=== PATIENT | female | born 1970 | race Caucasian/White ===

== ENCOUNTER 2022-07-31 11:46 | Outpatient (CLI) | payer OTHER ==
[2022-07-31] MEDS ORDERED: Magnevist 469MG/ML 20 ML VIAL ONE (12:50)
== END 2022-07-31 11:47 | disposition home or self-care (01) ==
LOC: CSHMRI 11:46
PROVIDERS: ATTEND Psychiatry & Neurology Neurology
DX: G35 Multiple sclerosis (principal); M47.814 Spondylosis without myelopathy or radiculopathy, thoracic region; M51.24 Other intervertebral disc displacement, thoracic region; G95.89 Other specified diseases of spinal cord; M47.812 Spondylosis without myelopathy or radiculopathy, cervical region; M48.02 Spinal stenosis, cervical region
CPT/HCPCS: 70553; 72156; 72157; A9579

== ENCOUNTER 2025-03-31 19:10 | Emergency (ER) | payer MEDICAID ==
[~2025-03-31 19:10] MED LIST: Iopamidol 300 61% 100 ML VIAL FS ONE
[2025-03-31 20:17] LABS: #Basophils 0.04 10x3/uL (0.0-0.2); #Eosinophils 0.20 10x3/uL (0.0-0.5); #Monocytes 0.54 10x3/uL (0.0-1.1); #Neutrophils 5.08 10x3/uL (1.5-8.4); %Basophils 0.4 % (0.0-2.0); %Eosinophils 2.1 % (0.0-6.0); %Lymphocytes 37.2 % (18.0-47.0); %Monocytes 5.8 % (0.0-10.0); %Neutrophils 54.3 % (40.0-75.0); Hematocrit 41.9 % (34.9-44.5); Hemoglobin 14.0 g/dL (12.0-15.5); Mean Corpuscular Hemoglobin 31.0 pg (27.0-33.0); Mean Corpuscular Volume 92.7 fL (81.6-98.3); Platelet Count 197 10x3/uL (150-450); Red Blood Cell (RBC) Count 4.52 10x6/uL (3.90-5.03); White Blood Cell (WBC) Count 9.37 10x3/uL (3.5-10.5)
[2025-03-31 20:38] LABS: ALT (SGPT) 19 U/L (Less than 34); AST (SGOT) 21 U/L (11-34); Albumin 4.0 g/dL (3.1-4.5); Alkaline Phosphatase 105 U/L (40-110); Anion Gap 11 mmol/L (10-20); BUN (Urea Nitrogen) 17 mg/dL (9.8-20.1); Bilirubin, Total 0.7 mg/dL (0.3-1.2); Calc. Creatinine Clearance 0 mL/min (70-130); Calcium 9.2 mg/dL (7.8-10.44); Carbon Dioxide 27 mmol/L (22-29); Chloride 106 mmol/L (98-107); Globulin 3.1 g/dL (2.4-3.5); Glucose 91 mg/dL (70-105); Lipase 41 U/L (8-78); Magnesium 1.9 mg/dL (1.6-2.6); Potassium 3.1 mmol/L (3.5-5.1); Sodium 141 mmol/L (136-145)
[2025-03-31 21:11] LABS: Glucose, Urine (Dipstick) Normal (Negative); Leukocyte 100 (Negative); Protein, Urine (Dipstick) 100 mg/dl (Neg-Trace); Specific Gravity, Urine 1.025 (1.005-1.030)
[2025-03-31 21:24] LABS: RBC/HPF 0-3 HPF (0-3); WBC/HPF 0-3 HPF (0-3)
[2025-03-31 21:25] LABS: Bacteria/HPF 2+ HPF (None Seen); Mucous/LPF 2+ LPF (<2+)
== END 2025-03-31 22:27 | disposition home or self-care (01) ==
LOC: CSHERS 19:10
DX: K80.20 Calculus of gallbladder without cholecystitis without obstruction (principal); M25.562 Pain in left knee; E11.9 Type 2 diabetes mellitus without complications; I10 Essential (primary) hypertension; Z79.4 Long term (current) use of insulin; Z79.84 Long term (current) use of oral hypoglycemic drugs; Z79.899 Other long term (current) drug therapy
CPT/HCPCS: 74177; 76705; 80053; 81001; 83690; 83735; 85025; 93005; 96360; 96361; Q9967

== ENCOUNTER 2025-05-22 05:36 | Day surgery (SDC) | payer OTHER ==
[2025-05-18 15:14] VITALS: BMI 44.1
[2025-05-22] MEDS ORDERED: PROPOFOL 20 ML ONE (06:35)
[2025-05-22] MEDS ORDERED: Lidocaine 1% PF 5 ML VIAL ONE (06:37)
[2025-05-22] MEDS ORDERED: Rocuronium Bromide 10 MG/ML (10ML VIAL) ONE (06:37)
[2025-05-22] MEDS ORDERED: Glycopyrrolate 0.2 MG/ML 5 ML SYRINGE ONE (06:37)
[2025-05-22] MEDS ORDERED: SUCCINYLCHOLINE/SOD CL,ISO/PF 200 MG/10 ML SYRINGE FS ONE (06:38)
[2025-05-22] MEDS ORDERED: CEFAZOLIN 2 GM VIAL ONE (06:47)
[2025-05-22] MEDS ORDERED: Bupivacaine/Epinephrine 0.25% 30 ML VIAL ONE (06:47)
[2025-05-22] MEDS ORDERED: Sevoflurane 250 ML INH ANEST BOTTLE ONE (06:47)
[2025-05-22 07:24] LABS: #Basophils 0.03 10x3/uL (0.0-0.2); #Eosinophils 0.32 10x3/uL (0.0-0.5); #Monocytes 0.52 10x3/uL (0.0-1.1); #Neutrophils 4.59 10x3/uL (1.5-8.4); %Basophils 0.4 % (0.0-2.0); %Eosinophils 4.2 % (0.0-6.0); %Lymphocytes 28.2 % (18.0-47.0); %Monocytes 6.8 % (0.0-10.0); %Neutrophils 60.3 % (40.0-75.0); Hematocrit 37.9 % (34.9-44.5); Hemoglobin 12.5 g/dL (12.0-15.5); Mean Corpuscular Hemoglobin 30.6 pg (27.0-33.0); Mean Corpuscular Volume 92.7 fL (81.6-98.3); Platelet Count 181 10x3/uL (150-450); Red Blood Cell (RBC) Count 4.09 10x6/uL (3.90-5.03); White Blood Cell (WBC) Count 7.62 10x3/uL (3.5-10.5)
[2025-05-22] MEDS ORDERED: Famotidine/PF 20 mg/2ml Vial ONE (07:28)
[2025-05-22] MEDS ORDERED: Ondansetron PF 4 MG/2 ML Vial ONE ×2 (07:29→09:33)
[2025-05-22] MEDS ORDERED: KETAMINE 100 MG/ML (5ML VIAL) ONE (07:35)
[2025-05-22 07:37] LABS: BHCG - Serum Negative (NEGATIVE); Pregs Control Background? CLEAR/WHITE (CLR/WHITE); Pregs Control Bar Appear? YES (CONTROL BAR)
[2025-05-22 07:43] LABS: ALT (SGPT) 20 U/L (Less than 34); AST (SGOT) 27 U/L (11-34); Albumin 3.5 g/dL (3.1-4.5); Alkaline Phosphatase 112 U/L (40-110); Anion Gap 15 mmol/L (10-20); BUN (Urea Nitrogen) 10 mg/dL (9.8-20.1); Bilirubin, Direct 0.2 mg/dL (0.1-0.3); Bilirubin, Total 0.5 mg/dL (0.3-1.2); Calc. Creatinine Clearance 147 mL/min (70-130); Calcium 8.8 mg/dL (7.8-10.44); Carbon Dioxide 21 mmol/L (22-29); Chloride 110 mmol/L (98-107); Glucose 103 mg/dL (70-105); Potassium 4.2 mmol/L (3.5-5.1); Sodium 142 mmol/L (136-145)
[2025-05-22] MEDS ORDERED: PHENYLEPHRINE-NS 100 MCG/ML 10 ML SYRINGE ONE (08:15)
[2025-05-22] MEDS ORDERED: SUGAMMADEX SODIUM 200 MG/2 ML VIAL ONE (09:44)
== END 2025-05-22 12:30 | disposition home or self-care (01) ==
LOC: CSHSDC 05:36
PROVIDERS: ATTEND Student in an Organized Health Care Education/Training Program
PROC: 0FT44ZZ Resection of Gallbladder, Percutaneous Endoscopic Approach (ICD-10-PCS; principal; 2025-05-22)
PROC: 0FC94ZZ Extirpation of Matter from Common Bile Duct, Percutaneous Endoscopic Approach (ICD-10-PCS; principal; 2025-05-22)
DX: K80.10 Calculus of gallbladder with chronic cholecystitis without obstruction (principal); K82.8 Other specified diseases of gallbladder; E66.01 Morbid (severe) obesity due to excess calories; I10 Essential (primary) hypertension; E78.2 Mixed hyperlipidemia; F32.A Depression, unspecified; E11.9 Type 2 diabetes mellitus without complications; G47.33 Obstructive sleep apnea (adult) (pediatric); E55.9 Vitamin D deficiency, unspecified; Z88.5 Allergy status to narcotic agent; Z79.4 Long term (current) use of insulin; Z79.84 Long term (current) use of oral hypoglycemic drugs; Z79.85 Long-term (current) use of injectable non-insulin antidiabetic drugs; Z87.891 Personal history of nicotine dependence; Z79.899 Other long term (current) drug therapy
CPT/HCPCS: 47562; C9776; 36415; 36416; 80048; 80076; 84703; 85025; 88304; 93005; 93010; C1889; C1894; J1308; J2250; J2405; J2550; J2704; J3010; S2900

== ENCOUNTER 2025-06-26 13:36 | Inpatient (IN) | payer MEDICAID, OTHER ==
[2025-06-26 14:25] LABS: #Basophils Less than 0.03 10x3/uL (0.0-0.2); #Eosinophils 0.09 10x3/uL (0.0-0.5); #Monocytes 0.20 10x3/uL (0.0-1.1); #Neutrophils 4.58 10x3/uL (1.5-8.4); %Basophils 0.0 % (0.0-2.0); %Eosinophils 1.5 % (0.0-6.0); %Lymphocytes 16.5 % (18.0-47.0); %Monocytes 3.4 % (0.0-10.0); %Neutrophils 78.1 % (40.0-75.0); Hematocrit 40.7 % (34.9-44.5); Hemoglobin 13.0 g/dL (12.0-15.5); Mean Corpuscular Hemoglobin 29.6 pg (27.0-33.0); Mean Corpuscular Volume 92.7 fL (81.6-98.3); Platelet Count 184 10x3/uL (150-450); Red Blood Cell (RBC) Count 4.39 10x6/uL (3.90-5.03); White Blood Cell (WBC) Count 5.87 10x3/uL (3.5-10.5)
[2025-06-26 14:40] LABS: ALT (SGPT) 346 U/L (Less than 34); AST (SGOT) 361 U/L (11-34); Albumin 3.4 g/dL (3.1-4.5); Alkaline Phosphatase 196 U/L (40-110); Anion Gap 14 mmol/L (10-20); BUN (Urea Nitrogen) 9 mg/dL (9.8-20.1); Bilirubin, Total 0.8 mg/dL (0.3-1.2); CK (CPK) 65 U/L (29-168); Calc. Creatinine Clearance 0 mL/min (70-130); Calcium 8.5 mg/dL (7.8-10.44); Carbon Dioxide 21 mmol/L (22-29); Chloride 108 mmol/L (98-107); Globulin 2.6 g/dL (2.4-3.5); Glucose 132 mg/dL (70-105); Magnesium 1.9 mg/dL (1.6-2.6); Potassium 3.9 mmol/L (3.5-5.1); Sodium 139 mmol/L (136-145)
[2025-06-26 14:42] LABS: Troponin I Less than 0.010 ng/mL (< 0.028)
[2025-06-26] MEDS ORDERED: Glucagon 1 MG/ML KIT IM PRN (17:14)
[2025-06-26] MEDS ORDERED: Dextrose 50% Abboject 50 ML SYRINGE SLOW IVP PRN (17:14)
[2025-06-26] MEDS ORDERED: Senokot S 8.6-50 MG TAB PO PRN (17:14)
[2025-06-26] MEDS ORDERED: Ondansetron PF 4 MG/2 ML Vial IVP PRN (17:14)
[2025-06-26] MEDS ORDERED: Electrolyte Replacement Protocol 1 EACH FS SCH (17:15)
[2025-06-26 18:09] LABS: Glucose, Urine (Dipstick) Normal (Negative); Leukocyte Negative (Negative); Protein, Urine (Dipstick) Negative (Neg-Trace); Specific Gravity, Urine 1.020 (1.005-1.030)
[2025-06-26] MEDS ORDERED: PHOS-NAK 1 PKT PACK PO PRN (18:15)
[2025-06-26] MEDS ORDERED: Potassium Chloride 20 MEQ in Premix 1 BAG IVPB PRN (18:15)
[2025-06-26] MEDS ORDERED: Magnesium 2 GM/50 ML(in water) 2 GM in Premix 1 BAG IVPB PRN (18:15)
[2025-06-26] MEDS ORDERED: Albuterol 2.5 MG (3 mL) NEB NEB PRN (18:18)
[2025-06-26 18:29] VITALS: BMI 42.7
[2025-06-26 18:55] LABS: Bacteria/HPF None Seen HPF (None Seen); CAUTI Indications for Culture Alt mental st,lethar; RBC/HPF None Seen HPF (0-3); Urine Culture Reflex No No; WBC/HPF 0-3 HPF (0-3)
[2025-06-26] MEDS: Famotidine 20 MG TAB PO SCH (21:16)
[2025-06-26] MEDS: Lantus 1000 UNITS/10 ML VIAL SC SCH (21:16)
[2025-06-26] MEDS: Gabapentin 300 MG CAP PO SCH (21:18)
[2025-06-26] MEDS: Enoxaparin 40 MG (0.4 mL) SYRINGE SC SCH (21:19)
[2025-06-26] MEDS: Melatonin 3 MG TAB PO SCH (21:46)
[2025-06-26] MEDS: methylPREDNISolone Sod Succ 1 GM in Sodium Chloride 0.9% 250 ML 250 ML IVPB SCH (21:51)
[2025-06-27 04:46] LABS: ALT (SGPT) 293 U/L (Less than 34); AST (SGOT) 203 U/L (11-34); Albumin 3.2 g/dL (3.1-4.5); Alkaline Phosphatase 176 U/L (40-110); Anion Gap 13 mmol/L (10-20); BUN (Urea Nitrogen) 11 mg/dL (9.8-20.1); Bilirubin, Total 0.8 mg/dL (0.3-1.2); Calc. Creatinine Clearance 186 mL/min (70-130); Calcium 9.1 mg/dL (7.8-10.44); Carbon Dioxide 21 mmol/L (22-29); Chloride 109 mmol/L (98-107); Globulin 3.1 g/dL (2.4-3.5); Glucose 222 mg/dL (70-105); Potassium 3.8 mmol/L (3.5-5.1); Sodium 139 mmol/L (136-145)
[2025-06-27 05:02] LABS: #Basophils Less than 0.03 10x3/uL (0.0-0.2); #Eosinophils 0.11 10x3/uL (0.0-0.5); #Monocytes Less than 0.03 10x3/uL (0.0-1.1); #Neutrophils 4.43 10x3/uL (1.5-8.4); %Basophils 0.2 % (0.0-2.0); %Eosinophils 2.1 % (0.0-6.0); %Lymphocytes 11.1 % (18.0-47.0); %Monocytes 0.4 % (0.0-10.0); %Neutrophils 86.0 % (40.0-75.0); Hematocrit 37.4 % (34.9-44.5); Hemoglobin 12.2 g/dL (12.0-15.5); Mean Corpuscular Hemoglobin 30.1 pg (27.0-33.0); Mean Corpuscular Volume 92.3 fL (81.6-98.3); Platelet Count 166 10x3/uL (150-450); Red Blood Cell (RBC) Count 4.05 10x6/uL (3.90-5.03); White Blood Cell (WBC) Count 5.15 10x3/uL (3.5-10.5)
[2025-06-27] MEDS: Aspirin 81 mg Enteric Coated Tablet PO SCH (09:41)
[2025-06-27] MEDS: methylPREDNISolone Sod Succ 1 GM in Sodium Chloride 0.9% 250 ML 250 ML IVPB SCH (10:50)
[2025-06-27] MEDS: valACYclovir 500 MG TAB PO SCH ×2 (11:18→20:44)
[2025-06-27] MEDS: Metoprolol Succinate XL 50 MG ER.TAB PO SCH (11:18)
[2025-06-27] MEDS: Citalopram 20 MG TAB PO SCH (13:03)
[2025-06-27] MEDS: metFORMIN 500 MG TAB PO SCH (17:20)
[2025-06-27] MEDS: Melatonin 3 MG TAB PO PRN (20:42)
[2025-06-27] MEDS: Cholecalciferol 1,000 UNITS (25 MCG) TAB PO SCH (20:42)
[2025-06-27] MEDS: Rosuvastatin 10 MG TAB PO SCH (20:42)
[2025-06-27] MEDS ORDERED: Oxybutynin 5 MG TAB PO SCH (21:00)
[2025-06-28 07:58] LABS: #Basophils Less than 0.03 10x3/uL (0.0-0.2); #Eosinophils Less than 0.03 10x3/uL (0.0-0.5); #Monocytes 0.28 10x3/uL (0.0-1.1); #Neutrophils 11.71 10x3/uL (1.5-8.4); %Basophils 0.1 % (0.0-2.0); %Eosinophils 0.0 % (0.0-6.0); %Lymphocytes 7.5 % (18.0-47.0); %Monocytes 2.1 % (0.0-10.0); %Neutrophils 89.7 % (40.0-75.0); Hematocrit 36.4 % (34.9-44.5); Hemoglobin 11.8 g/dL (12.0-15.5); Mean Corpuscular Hemoglobin 29.7 pg (27.0-33.0); Mean Corpuscular Volume 91.7 fL (81.6-98.3); Platelet Count 173 10x3/uL (150-450); Red Blood Cell (RBC) Count 3.97 10x6/uL (3.90-5.03); White Blood Cell (WBC) Count 13.06 10x3/uL (3.5-10.5)
[2025-06-28] MEDS: Metoprolol Succinate XL 50 MG ER.TAB PO SCH (08:12)
[2025-06-28] MEDS: Citalopram 20 MG TAB PO SCH (08:14)
[2025-06-28 08:16] LABS: ALT (SGPT) 233 U/L (Less than 34); AST (SGOT) 87 U/L (11-34); Albumin 3.1 g/dL (3.1-4.5); Alkaline Phosphatase 165 U/L (40-110); Anion Gap 13 mmol/L (10-20); BUN (Urea Nitrogen) 17 mg/dL (9.8-20.1); Bilirubin, Total 0.3 mg/dL (0.3-1.2); Calc. Creatinine Clearance 166 mL/min (70-130); Calcium 9.0 mg/dL (7.8-10.44); Carbon Dioxide 22 mmol/L (22-29); Chloride 108 mmol/L (98-107); Globulin 2.9 g/dL (2.4-3.5); Glucose 255 mg/dL (70-105); Potassium 4.7 mmol/L (3.5-5.1); Sodium 138 mmol/L (136-145)
[2025-06-29 03:52] LABS: #Basophils Less than 0.03 10x3/uL (0.0-0.2); #Eosinophils Less than 0.03 10x3/uL (0.0-0.5); #Monocytes 0.30 10x3/uL (0.0-1.1); #Neutrophils 9.30 10x3/uL (1.5-8.4); %Basophils 0.0 % (0.0-2.0); %Eosinophils 0.0 % (0.0-6.0); %Lymphocytes 9.3 % (18.0-47.0); %Monocytes 2.8 % (0.0-10.0); %Neutrophils 85.9 % (40.0-75.0); Hematocrit 36.6 % (34.9-44.5); Hemoglobin 12.1 g/dL (12.0-15.5); Mean Corpuscular Hemoglobin 30.6 pg (27.0-33.0); Mean Corpuscular Volume 92.7 fL (81.6-98.3); Platelet Count 173 10x3/uL (150-450); Red Blood Cell (RBC) Count 3.95 10x6/uL (3.90-5.03); White Blood Cell (WBC) Count 10.83 10x3/uL (3.5-10.5)
[2025-06-29 04:09] LABS: ALT (SGPT) 172 U/L (Less than 34); AST (SGOT) 32 U/L (11-34); Albumin 3.1 g/dL (3.1-4.5); Alkaline Phosphatase 153 U/L (40-110); Anion Gap 11 mmol/L (10-20); BUN (Urea Nitrogen) 19 mg/dL (9.8-20.1); Bilirubin, Total 0.2 mg/dL (0.3-1.2); Calc. Creatinine Clearance 166 mL/min (70-130); Calcium 8.8 mg/dL (7.8-10.44); Carbon Dioxide 25 mmol/L (22-29); Chloride 106 mmol/L (98-107); Globulin 2.9 g/dL (2.4-3.5); Glucose 223 mg/dL (70-105); Potassium 4.3 mmol/L (3.5-5.1); Sodium 138 mmol/L (136-145)
[2025-06-29] MEDS: Ketorolac Tromethamine 30 MG (1 mL) VIAL IVP PRN (09:23)
[2025-06-29] MEDS: Lantus 1000 UNITS/10 ML VIAL SC SCH (21:25)
[2025-06-30 04:05] LABS: #Basophils Less than 0.03 10x3/uL (0.0-0.2); #Eosinophils Less than 0.03 10x3/uL (0.0-0.5); #Monocytes 0.26 10x3/uL (0.0-1.1); #Neutrophils 7.55 10x3/uL (1.5-8.4); %Basophils 0.1 % (0.0-2.0); %Eosinophils 0.0 % (0.0-6.0); %Lymphocytes 13.4 % (18.0-47.0); %Monocytes 2.8 % (0.0-10.0); %Neutrophils 80.8 % (40.0-75.0); Hematocrit 37.8 % (34.9-44.5); Hemoglobin 12.8 g/dL (12.0-15.5); Mean Corpuscular Hemoglobin 30.3 pg (27.0-33.0); Mean Corpuscular Volume 89.6 fL (81.6-98.3); Platelet Count 174 10x3/uL (150-450); Red Blood Cell (RBC) Count 4.22 10x6/uL (3.90-5.03); White Blood Cell (WBC) Count 9.34 10x3/uL (3.5-10.5)
[2025-06-30 04:25] LABS: ALT (SGPT) 114 U/L (Less than 34); AST (SGOT) 18 U/L (11-34); Albumin 2.9 g/dL (3.1-4.5); Alkaline Phosphatase 135 U/L (40-110); Anion Gap 11 mmol/L (10-20); BUN (Urea Nitrogen) 20 mg/dL (9.8-20.1); Bilirubin, Total 0.2 mg/dL (0.3-1.2); Calc. Creatinine Clearance 161 mL/min (70-130); Calcium 8.5 mg/dL (7.8-10.44); Carbon Dioxide 25 mmol/L (22-29); Chloride 105 mmol/L (98-107); Globulin 2.8 g/dL (2.4-3.5); Glucose 232 mg/dL (70-105); Potassium 4.3 mmol/L (3.5-5.1); Sodium 137 mmol/L (136-145)
[2025-06-30 12:16] VITALS: BP 145/88; TEMP 98.3
== END 2025-06-30 15:28 | disposition home or self-care (01) | DRG 59 ==
LOC: CSHERS 13:36 → CSHTELE 16:10
PROVIDERS: ADMIT Student in an Organized Health Care Education/Training Program; ATTEND Hospitalist
PROC: 5A09357 Assistance with Respiratory Ventilation, Less than 24 Consecutive Hours, Continuous Positive Airway Pressure (ICD-10-PCS; principal; 2025-06-26)
DX: G35.D Multiple sclerosis, unspecified (principal); Z68.41 Body mass index [BMI] 40.0-44.9, adult; E11.40 Type 2 diabetes mellitus with diabetic neuropathy, unspecified; E11.22 Type 2 diabetes mellitus with diabetic chronic kidney disease; I12.9 Hypertensive chronic kidney disease with stage 1 through stage 4 chronic kidney disease, or unspecified chronic kidney disease; D17.71 Benign lipomatous neoplasm of kidney; E66.9 Obesity, unspecified; Z88.8 Allergy status to other drugs, medicaments and biological substances; Z87.891 Personal history of nicotine dependence; N18.2 Chronic kidney disease, stage 2 (mild); F43.10 Post-traumatic stress disorder, unspecified; F41.9 Anxiety disorder, unspecified; F32.A Depression, unspecified; A60.00 Herpesviral infection of urogenital system, unspecified; R74.01 Elevation of levels of liver transaminase levels
CPT/HCPCS: 36415; 36416; 70553; 71045; 74176; 80053; 81001; 82550; 83735; 84484; 85025; 93005; 94760; 96365; 96366; 96375; J1650; J1815; J1885; J2930; J3360; J7050